=== PATIENT | female | born 1960 | race Caucasian/White ===

== ENCOUNTER 2024-01-12 14:26 | Emergency (ER) | payer BC, SELFPAY ==
[2024-01-12 14:37] VITALS: BP 117/78; PULSE 64; RESP 16; TEMP 36.8; O2SAT 95; BMI 20.8
--- NOTE | 2024-01-12 14:58 | CRLHL7_ITS ---
For Patients: As a result of the Century Cures Act, medical imaging exams and procedure reports are released immediately into your electronic medical record. You may view this report before your referring provider. If you have questions, please contact your health care provider. INDICATION: Headache. Trauma. TECHNIQUE: Non-contrast CT of the head is submitted. No comparisons. FINDINGS: The ventricles, sulci and gyri are of normal size, shape and contour. Midline structures are centrally located. No convincing evidence of intra- or extra-axial fluid collections. IMPRESSION: 1. No radiographic evidence of acute intracranial abnormalities. Please note that all CT scans at this facility use dose modulation, iterative reconstruction, and/or weight-based dosing when appropriate to reduce radiation dose to as low as reasonably achievable. Dictated by Chava Carlson MD @ 01/12/2024 3:25:49 PM (Electronically Signed)
--- NOTE | 2024-01-12 14:59 | ED.HEATRA ---
HPI - Head Injury General Date Seen: 01/12/24 Chief complaint: Head Injury/Pain Stated complaint: Hit head Time Seen by Provider: 01/12/24 14:40 Source: patient Mode of arrival: ambulatory Limitations: no limitations History of Present Illness HPI Narrative: Patient is a 63-year-old female presenting to emergency department for a head injury. She states yesterday about 530 she still up in hit the right posterior parietal portion of her skull on the corner of a steel cabinet. She states since that has happened she felt like there has been an on sensation behind his sinuses that has not been improving. She states she has some lightheadedness but this is a chronic issue and not different than her baseline. Same with her dizziness and nausea. Has not noticed any numbness or weakness. Denies vision changes, chest pain, shortness of breath. No other concerns noted. Is not having any neck pain Related Data Home Medications ?Medication ?Instructions ?Recorded ?Confirmed aspirin 325 mg capsule 325 mg PO Q4-6H PRN 01/12/24 01/12/24 sumatriptan succinate 100 mg tablet mg PO 01/12/24 Allergies Allergy/AdvReac Type Severity Reaction Status Date / Time tetracycline Allergy Verified 01/12/24 14:42 Review of Systems Status of ROS: Reports: 10 or more systems reviewed and unremarkable except as noted in History and below [facility] Social History Smoking Status: Former smoker How often do you have a drink containing alcohol: monthly or less AUDIT-C Alcohol total score: 1 Non-prescribed substance use: denies use Exam Narrative: Exam Narrative: Const: Well-nourished, Well-developed, in now distress Eyes: PERRL, no conjunctival injection, and symmetrical lids HENT: Atraumatic external nose and ears. Moist mucous membranes, no palpable skull fractures Neck: Symmetric, trachea midline, No thyromegaly. CVS: RRR, No murmurs or gallops. Peripheral pulses 2+ and equal in all extremities RESP: Unlabored respiratory effort. Clear to auscultation bilaterally. GI: Nontender/Nondistended, No rebound or guarding. MSK:Extremities w/o deformity, Normal Active ROM Skin: Warm, Dry. No rashes or lesions. Neuro: Normal Muscle tone, No focal neurological deficits. Psych: Awake, Alert, & Oriented x3. Appropriate mood and affect. Const: Vital Signs, click to edit/add: Vital Signs - 24 hr 01/12/24 14:37 Temperature 98.3 F Pulse Rate [Left P ulse Oximeter] 64 Respiratory Rate 16 Blood Pressure [Ri ght Upper Arm] 117/78 Pulse Oximetry 95 Oxygen Delivery Me thod Room Air Course Vital Signs Vital signs: Initial Vital Signs Temperature 98.3 F 01/12/24 14:37 Temperature Source Temporal Artery Scan 01/12/24 14:37 Pulse Rate 64 01/12/24 14:37 Respiratory Rate 16 01/12/24 14:37 Blood Pressure 117/78 01/12/24 14:37 Blood Pressure Mean 91 01/12/24 14:37 Blood Pressure Position Sitting 01/12/24 14:37 Pulse Oximetry 95 01/12/24 14:37 Oxygen Delivery Method Room Air 01/12/24 14:37 Vital Signs Temperature 98.3 F 01/12/24 14:37 Pulse Rate 64 01/12/24 14:37 Respiratory Rate 16 01/12/24 14:37 Blood Pressure 117/78 01/12/24 14:37 Pulse Oximetry 95 01/12/24 14:37 Oxygen Delivery Method Room Air 01/12/24 14:37 Temperature 98.3 F 01/12/24 14:37 Pulse Rate 64 01/12/24 14:37 Respiratory Rate 16 01/12/24 14:37 Blood Pressure 117/78 01/12/24 14:37 Pulse Oximetry 95 01/12/24 14:37 Oxygen Delivery Method Room Air 01/12/24 14:37 MDM - Head Injury MDM Narrative Medical decision making narrative: Patient is a 63-year-old female presenting to emergency department for concern of a head injury. Will do CT scan. Do not feel any palpable skull fractures. No clear signs of intracranial bleeding at this time. She describes the headache as just a odd sensation behind her sinuses and this does not seem consistent with a traumatic subarachnoid bleed. I believe CT scan is reasonable to do at this time and further lab work or imaging is not necessary. Is not having any neck pain. CT reviewed by myself the radiologist shows no concerning abnormalities patient is doing well we discharged at this time. She is agreeable to this plan. Imaging Data CT scan - head: Attestation: I have reviewed the pertinent imaging results. Radiologist's impression: 1. No radiographic evidence of acute intracranial abnormalities. Please note that all CT scans at this facility use dose modulation, iterative reconstruction, and/or weight-based dosing when appropriate to reduce radiation dose to as low as reasonably achievable. Dictated by Chava Carlson MD @ 01/12/2024 3:25:49 PM Discharge Plan Discharge Clinical Impression: Closed head injury Qualifiers: Encounter type: initial encounter Qualified Code(s): S09.90XA - Unspecified injury of head, initial encounter Patient Disposition: Home, Self-Care Condition: Stable Instructions: Head Injury (DC) Additional Instructions: There is no signs of intracranial abnormalities or skull fractures on the CT scan. Return to emergency department for new or worsening symptoms. Prescriptions: No Action sumatriptan succinate 100 mg tablet PO aspirin 325 mg capsule 325 mg PO Q4-6H PRN Follow Up/Referrals: Adrianna Mascorro MD [Staff Physician] - Stand Alone Forms: [employer] Info Instructions
[2024-01-12 16:08] VITALS: BP 136/84; PULSE 63; RESP 16
== END 2024-01-12 16:09 | disposition home or self-care (01) ==
PROVIDERS: Emergency Provider Student in an Organized Health Care Education/Training Program; PCP Family Medicine
DX: S09.90XA Unspecified injury of head, initial encounter (principal); W22.8XXA Striking against or struck by other objects, initial encounter
CPT/HCPCS: 70450; 99282; 99283

== ENCOUNTER 2024-07-13 06:10 | Inpatient (IN) | payer BC, SELFPAY ==
[2024-07-13] VITALS (10 sets, daily range): BP systolic 121–162; BP diastolic 75–102; PULSE 84–101; RESP 16–20; TEMP 36.4–37; O2SAT 95–99; BMI 21.7; BMI 20.6
--- NOTE | 2024-07-13 06:31 | ED.GENADULT ---
HPI - General Adult General Time Seen by Provider: 06:25 <Gretta Donaldson MD - Last Filed: 07/14/24 11:53> Date Seen: 07/13/24 <Gretta Donaldson MD - Last Filed: 07/14/24 11:53> Chief complaint: Nausea/Vomiting <Gretta Donaldson MD - Last Filed: 07/14/24 11:53> Stated complaint: Small Bowel Obstruction <Gretta Donaldson MD - Last Filed: 07/14/24 11:53> Time Seen by Provider: 07/13/24 06:30 <Gretta Donaldson MD - Last Filed: 07/14/24 11:53> Source: patient, RN notes reviewed and old records reviewed <Gretta Donaldson MD - Last Filed: 07/14/24 11:53> Mode of arrival: ambulatory <Gretta Donaldson MD - Last Filed: 07/14/24 11:53> Limitations: no limitations <Gretta Donaldson MD - Last Filed: 07/14/24 11:53> History of Present Illness HPI narrative: This 64-year-old female is coming in with nausea vomiting and abdominal pain. She started having discomfort late this evening, started throwing up around 1:00 a.m.. She has had multiple episodes of vomiting, did have to since arrival. She has had no fevers, no diarrhea. She had a normal bowel movement on Sunday morning. She has had a history of bowel obstruction before. She states we were close to taking her to surgery here, opted not to at the last minute, states she was given Ativan and markedly improved. She notes she shakes every time this has happened, reviewed with her that that can be a normal reaction. She was hospitalized once prior at [facility] for bowel obstruction managed non operatively in 2012. Her other bowel obstruction was reportedly in 2014. For surgery, she has had hysterectomy, tubal ligation, laparoscopic ovarian cystectomy. She is having generalized abdominal pain. <Gretta Donaldson MD - Last Filed: 07/14/24 11:53> Related Data Home medications: Home Medications ?Medication ?Instructions ?Recorded ?Confirmed aspirin 325 mg capsule 325 mg PO Q4-6H PRN 01/12/24 07/13/24 sumatriptan succinate 100 mg tablet 100 mg PO DIRECTED 01/12/24 07/13/24 <Gretta Donaldson MD - Last Filed: 07/14/24 11:53> Allergies/adverse reactions: Allergies Allergy/AdvReac Type Severity Reaction Status Date / Time tetracycline Allergy Verified 07/13/24 07:55 <Gretta Donaldson MD - Last Filed: 07/14/24 11:53> Review of Systems Status of ROS: Reports: 6 or more systems reviewed and unremarkable except as noted in History and below <Gretta Donaldson MD - Last Filed: 07/14/24 11:53> [facility] Medical History: Medical History (Updated 07/13/24 @ 13:35 by Yao Larkin MD) Constipation ?K59.00 - Constipation, unspecified (ICD-10) Hyperlipidemia ?E78.5 - Hyperlipidemia, unspecified (ICD-10) Irritable bowel syndrome ?K58.9 - Irritable bowel syndrome, unspecified (ICD-10) GERD (gastroesophageal reflux disease) ?K21.9 - Gastro-esophageal reflux disease without esophagitis (ICD-10) Migraines ?G43.909 - Migraine, unspecified, not intractable, without status migrainosus (ICD-10) Stage 2 chronic kidney disease ?N18.2 - Chronic kidney disease, stage 2 (mild) (ICD-10) <Gretta Donaldson MD - Last Filed: 07/14/24 11:53> Surgical History: Surgical History (Updated 07/13/24 @ 13:26 by Yao Larkin MD) H/O ovarian cystectomy ?Z98.890 - Other specified postprocedural states (ICD-10) ?Z87.42 - Personal history of other diseases of the female genital tract (ICD-10) History of tubal ligation ?Z98.51 - Tubal ligation status (ICD-10) History of hysterectomy ?Z90.710 - Acquired absence of both cervix and uterus (ICD-10) <Gretta Donaldson MD - Last Filed: 07/14/24 11:53> Family History: Family History (Updated 07/13/24 @ 13:27 by Yao Larkin MD) Mother Thyroid disease Grandmother No problems noted. Grandfather Colon cancer <Gretta Donaldson MD - Last Filed: 07/14/24 11:53> Social History: Social History (Updated 07/13/24 @ 13:29 by Yao Larkin MD) Narrative: She lives alone in [place]. She sees Dr. Henderson for primary care. Her mother is present with her today and is healthcare power of finance attorney. She works as a machinist mate. She does not smoke. She previously drank 1 beer a week but has not had anything to drink for a couple months. Code status is full What is your current living situation?: I presently have a place to live Problems where you live: no known problems Problems where you live details: n/a In the past 12 months, utilities in danger of being shut off: no In past 12 months, lack of transportation kept you from medical appts, meetings, work, or getting things needed for daily living: no In the past 12 mos, have been you worried that your food would run out before you had money to buy more?: never true In the past 12 mos, the food you bought just didn't last and you didn't have money to buy more?: never true Smoking Status: Never smoker Second hand tobacco smoke exposure: No How often do you have a drink containing alcohol: never How often do you have six or more drinks on one occasion: Never AUDIT-C Alcohol total score: 0 Non-prescribed substance use: denies use Caffeine: No How often does anyone, including family, friends and others, physically hurt you: never How often does anyone, including family, friends and others, insult or talk down to you: never How often does anyone, including family, friends and others, threaten you with harm: never How often does anyone, including family, friends and others, scream or curse at you: never <Gretta Donaldson MD - Last Filed: 07/14/24 11:53> Exam Const: Vital Signs, click to edit/add: Vital Signs - 24 hr 07/13/24 15:00 07/13/24 15:00 07/13/24 19:04 Temperature 97.6 F 98.6 F Pulse Rate [Pulse Oximeter] 86 86 84 Respiratory Rate 18 16 16 Blood Pressure [Ri ght Arm] 121/75 135/76 Pulse Oximetry 95 98 Oxygen Delivery Me thod Room Air Room Air 07/13/24 22:22 07/13/24 22:25 07/14/24 02:30 Temperature 98.4 F 98.9 F Pulse Rate [Pulse Oximeter] 94 94 95 Respiratory Rate 16 16 16 Blood Pressure [Ri ght Arm] 146/86 H 143/77 H Pulse Oximetry 98 98 Oxygen Delivery Me thod Room Air Room Air 07/14/24 07:00 07/14/24 07:00 Temperature 98.6 F Pulse Rate [Pulse Oximeter] 79 79 Respiratory Rate 16 16 Blood Pressure [Ri ght Arm] 121/76 Pulse Oximetry 97 Oxygen Delivery Me thod Room Air 64-year-old female is alert, interactive, no apparent distress does look uncomfortable. Pupils equal round reactive, sclera clear, symmetrical facial function. Lungs are clear, good air entry, no wheezing or crackles. CV regular rate and rhythm, no murmur, normal S1-S2. Abdomen is maybe slightly distended but patient's overall body habitus is slender. She has some mild generalized tenderness on palpation without any rebound or guarding, no organomegaly, no masses. On brief auscultation, do not hear bowel sounds. Patient was ambulatory into the ED of her own accord, no lower extremity edema. Skin visualized without rash or jaundice. <Gretta Donaldson MD - Last Filed: 07/14/24 11:53> Vital Signs, click to edit/add: Vital Signs - 24 hr 07/13/24 15:00 07/13/24 15:00 07/13/24 19:04 Temperature 97.6 F 98.6 F Pulse Rate [Pulse Oximeter] 86 86 84 Respiratory Rate 18 16 16 Blood Pressure [Ri ght Arm] 121/75 135/76 Pulse Oximetry 95 98 Oxygen Delivery Me thod Room Air Room Air 07/13/24 22:22 07/13/24 22:25 07/14/24 02:30 Temperature 98.4 F 98.9 F Pulse Rate [Pulse Oximeter] 94 94 95 Respiratory Rate 16 16 16 Blood Pressure [Ri ght Arm] 146/86 H 143/77 H Pulse Oximetry 98 98 Oxygen Delivery Me thod Room Air Room Air 07/14/24 07:00 07/14/24 07:00 Temperature 98.6 F Pulse Rate [Pulse Oximeter] 79 79 Respiratory Rate 16 16 Blood Pressure [Ri ght Arm] 121/76 Pulse Oximetry 97 Oxygen Delivery Me thod Room Air <Antonio Sharma MD - Last Filed: 07/13/24 08:46> Documenting provider has reviewed patient's vital signs: yes <Gretta Donaldson MD - Last Filed: 07/14/24 11:53> Course Course ED Course: IV will be established, will give patient a L of normal saline over 2 hours. She is declining anything for nausea or pain management at this time but assures me that she will keep this in mind and let us know if she does require either of these. I have stressed to her that she really should consider pain management. Will do a point of care creatinine so we can do CT imaging. We will get appropriate labs. Differential is gastroenteritis, bowel obstruction. CT imaging will certainly allude to any other possible intra-abdominal pathology. <Gretta Donaldson MD - Last Filed: 07/14/24 11:53> Reevaluation(s) Reevaluation #1: PATIENT NOTED TO HAVE A SMALL-BOWEL OBSTRUCTION ON CT OF THE ABDOMEN PELVIS. I DID VISIT WITH [facility] PATIENT WILL BE PLACED IN OBSERVATION FOR BOWEL REST AND POSSIBLE NG TUBE PLACEMENT. <Antonio Sharma MD - Last Filed: 07/13/24 08:46> Consultations Consultation #1: Have called and given our general surgeon an update on this patient. Awaiting Radiology over-read but on prelim visualization of the CT, definite appearance of bowel obstruction. We will be turning care over to oncoming ED partner. <Gretta Donaldson MD - Last Filed: 07/14/24 11:53> Time: 07:57 <Gretta Donaldson MD - Last Filed: 07/14/24 11:53> Vital Signs Vital signs: Initial Vital Signs Pulse Oximetry 99 07/13/24 06:20 Vital Signs Pulse Oximetry 99 07/13/24 06:20 Temperature 98.5 F 03/10/25 11:00 Pulse Rate 91 07/14/24 11:00 Respiratory Rate 18 07/14/24 11:00 Blood Pressure 108/67 07/14/24 11:00 Pulse Oximetry 98 07/14/24 11:00 Oxygen Delivery Method Room Air 07/14/24 11:00 <Gretta Donaldson MD - Last Filed: 07/14/24 11:53> Initial Vital Signs Pulse Oximetry 99 07/13/24 06:20 Vital Signs Pulse Oximetry 99 07/13/24 06:20 Temperature 98.5 F 07/14/24 11:00 Pulse Rate 91 07/14/24 11:00 Respiratory Rate 18 07/14/24 11:00 Blood Pressure 108/67 07/14/24 11:00 Pulse Oximetry 98 07/14/24 11:00 Oxygen Delivery Method Room Air 07/14/24 11:00 <Antonio Sharma MD - Last Filed: 07/13/24 08:46> Medications Administered Medications: Generic Name Dose Route Start Last Admin Trade Name Freq PRN Reason Stop Dose Admin Aspirin 325 mg 07/14/24 09:00 07/14/24 08:41 Aspirin Ec 325 Mg Tablet PO 325 mg DAILY CONNER Administration Lactated Ringer's 1,000 mls @ 125 mls/hr 07/13/24 09:45 07/14/24 10:11 Lactated Ringers 1000 Ml IV Not Given .Q8H CONNER Lorazepam 0.5 - 1 mg 07/13/24 09:41 07/13/24 22:16 Lorazepam 2 Mg/Ml Inj IVP 0.5 mg Q4H PRN Administration Ondansetron HCl 4 mg 07/13/24 09:37 07/13/24 22:09 Ondansetron 2 Mg/Ml Inj IVP 4 mg Q4H PRN Administration Nausea Sodium Chloride 5 ml 07/13/24 08:43 07/13/24 22:17 Sodium Chloride 0.9 % (Flush) 10 Ml Syringe IVF 5 ml .FLUSH PRN Administration Sodium Chloride 5 ml 07/13/24 09:00 07/13/24 22:09 Sodium Chloride 0.9 % (Flush) 10 Ml Syringe IVF 5 ml BID CONNER Administration Discontinued Medications Generic Name Dose Route Start Last Admin Trade Name Freq PRN Reason Stop Dose Admin Sodium Chloride 1,000 mls @ 500 mls/hr 07/13/24 06:32 07/13/24 07:45 0.9 % Sodium Chloride 1000 Ml IV 07/13/24 08:31 0 mls/hr .Q2H CONNER Infusion <Gretta Donaldson MD - Last Filed: 07/14/24 11:53> Generic Name Dose Route Start Last Admin Trade Name Matthew PRN Reason Stop Dose Admin Aspirin 325 mg 07/14/24 09:00 07/14/24 08:41 Aspirin Ec 325 Mg Tablet PO 325 mg DAILY CONNER Administration Lactated Ringer's 1,000 mls @ 125 mls/hr 07/13/24 09:45 07/14/24 10:11 Lactated Ringers 1000 Ml IV Not Given .Q8H CONNER Lorazepam 0.5 - 1 mg 07/13/24 09:41 07/13/24 22:16 Lorazepam 2 Mg/Ml Inj IVP 0.5 mg Q4H PRN Administration Ondansetron HCl 4 mg 07/13/24 09:37 07/13/24 22:09 Ondansetron 2 Mg/Ml Inj IVP 4 mg Q4H PRN Administration Nausea Sodium Chloride 5 ml 07/13/24 08:43 07/13/24 22:17 Sodium Chloride 0.9 % (Flush) 10 Ml Syringe IVF 5 ml .FLUSH PRN Administration Sodium Chloride 5 ml 07/13/24 09:00 07/13/24 22:09 Sodium Chloride 0.9 % (Flush) 10 Ml Syringe IVF 5 ml BID CONNER Administration Discontinued Medications Generic Name Dose Route Start Last Admin Trade Name Matthew PRN Reason Stop Dose Admin Sodium Chloride 1,000 mls @ 500 mls/hr 07/13/24 06:32 07/13/24 07:45 0.9 % Sodium Chloride 1000 Ml IV 07/13/24 08:31 0 mls/hr .Q2H CONNER Infusion <Antonio Sharma MD - Last Filed: 07/13/24 08:46> Medical Decision Making Lab Data Lab results reviewed: Yes I reviewed the patient's lab results <Gretta Donaldson MD - Last Filed: 07/14/24 11:53> Labs: Lab Results 07/13/24 07/14/24 Range/Units 06:20 06:10 WBC 12.75 H 9.75 (4.50-11.00) K/uL RBC 5.03 4.28 (4.00-5.20) m/uL Hgb 14.7 12.2 (12.0-16.0) gm/dL Hct 44.3 38.1 (33.0-51.0) % MCV 88 89 (80-100) fL MCH 29 29 (26-34) pg MCHC 33 32 (32-36) gm/dL RDW Coeff of Jose R 14.2 14.7 (11.5-15.5) % Plt Count 380 314 (140-440) K/uL Neut % (Auto) 65.5 79.2 H (42.0-72.0) % Lymph % (Auto) 27.5 14.9 L (20-44) % [place] % (Auto) 5.2 5.5 (0.0-11.0) % Eos % (Auto) 1.3 0.1 (0.0-7.0) % Baso % (Auto) 0.3 0.2 (0.0-3.0) % Neut # (Auto) 8.40 H 7.70 H (1.7-7.0) K/uL Lymph # (Auto) 3.50 H 1.50 (0.90-2.90) K/uL [place] # (Auto) 0.70 0.50 (0.00-0.90) K/UL Eos # (Auto) 0.20 0.01 (0.00-0.50) K/uL Baso # (Auto) 0.00 0.02 (0.00-0.30) K/uL Abs Immat Gran (auto) 0.00 0.01 (0.00-0.30) K/uL Imm/Tot Granulo (auto) 0.2 0.1 % Sodium 139 138 (135-149) mmol/L Potassium 4.1 4.2 (3.6-5.1) mmol/L Chloride 104 106 (96-114) mmol/L Carbon Dioxide 25 29 (20-32) mmol/L Anion Gap 10 3 L (7-15) mEq/L BUN 15 14 (7-30) mg/dL Creatinine 1.1 0.9 (0.5-1.5) mg/dL Estimated Creat Clear 40.01 44.02 Estimated GFR 57 72 ml/min Glucose 124 H 110 (60-115) mg/dL Lactate 2.0 H 0.6 (0.5-1.9) mmol/L Calcium 10.0 8.9 (8.4-10.6) mg/dL Total Bilirubin 0.7 (0.1-1.5) mg/dL AST 28 (12-35) U/L ALT 23 (4-35) U/L Alkaline Phosphatase 59 (40-150) U/L C-Reactive Protein < 0.5 L (0.5-1.0) mg/dL Total Protein 7.5 (6.0-8.3) g/dL Albumin 4.7 (3.3-5.0) g/dL POC Creatinine 1.2 (0.6-1.3) mg/dl <Gretta Donaldson MD - Last Filed: 07/14/24 11:53> Lab Results 07/13/24 07/14/24 Range/Units 06:20 06:10 WBC 12.75 H 9.75 (4.50-11.00) K/uL RBC 5.03 4.28 (4.00-5.20) m/uL Hgb 14.7 12.2 (12.0-16.0) gm/dL Hct 44.3 38.1 (33.0-51.0) % MCV 88 89 (80-100) fL MCH 29 29 (26-34) pg MCHC 33 32 (32-36) gm/dL RDW Coeff of Jose R 14.2 14.7 (11.5-15.5) % Plt Count 380 314 (140-440) K/uL Neut % (Auto) 65.5 79.2 H (42.0-72.0) % Lymph % (Auto) 27.5 14.9 L (20-44) % [place] % (Auto) 5.2 5.5 (0.0-11.0) % Eos % (Auto) 1.3 0.1 (0.0-7.0) % Baso % (Auto) 0.3 0.2 (0.0-3.0) % Neut # (Auto) 8.40 H 7.70 H (1.7-7.0) K/uL Lymph # (Auto) 3.50 H 1.50 (0.90-2.90) K/uL [place] # (Auto) 0.70 0.50 (0.00-0.90) K/UL Eos # (Auto) 0.20 0.01 (0.00-0.50) K/uL Baso # (Auto) 0.00 0.02 (0.00-0.30) K/uL Abs Immat Gran (auto) 0.00 0.01 (0.00-0.30) K/uL Imm/Tot Granulo (auto) 0.2 0.1 % Sodium 139 138 (135-149) mmol/L Potassium 4.1 4.2 (3.6-5.1) mmol/L Chloride 104 106 (96-114) mmol/L Carbon Dioxide 25 29 (20-32) mmol/L Anion Gap 10 3 L (7-15) mEq/L BUN 15 14 (7-30) mg/dL Creatinine 1.1 0.9 (0.5-1.5) mg/dL Estimated Creat Clear 40.01 44.02 Estimated GFR 57 72 ml/min Glucose 124 H 110 (60-115) mg/dL Lactate 2.0 H 0.6 (0.5-1.9) mmol/L Calcium 10.0 8.9 (8.4-10.6) mg/dL Total Bilirubin 0.7 (0.1-1.5) mg/dL AST 28 (12-35) U/L ALT 23 (4-35) U/L Alkaline Phosphatase 59 (40-150) U/L C-Reactive Protein < 0.5 L (0.5-1.0) mg/dL Total Protein 7.5 (6.0-8.3) g/dL Albumin 4.7 (3.3-5.0) g/dL POC Creatinine 1.2 (0.6-1.3) mg/dl <Antonio Sharma MD - Last Filed: 07/13/24 08:46> Discharge Plan Discharge Clinical Impression: Complete obstruction of small intestine <Gretta Donaldson MD - Last Filed: 07/14/24 11:53> Patient Disposition: Admitted As Observation <Gretta Donaldson MD - Last Filed: 07/14/24 11:53> Condition: Stable <Gretta Donaldson MD - Last Filed: 07/14/24 11:53> Activity Level: Other <Gretta Donaldson MD - Last Filed: 07/14/24 11:53> Other <Antonio Sharma MD - Last Filed: 07/13/24 08:46> Discharge Diet: Other <Gretta Donaldson MD - Last Filed: 07/14/24 11:53> Other <Antonio Sharma MD - Last Filed: 07/13/24 08:46>
[2024-07-13 06:36] LABS: Creatinine, Point-of-Care* 1.2 mg/dl (0.6-1.3)
[2024-07-13] MEDS: 0.9 % SODIUM CHLORIDE 1000 ml 1,000 ML 500 ML IV (06:39)
[2024-07-13 06:45] LABS: Basophils Percent Auto 0.3 % (0.0-3.0); Eosinophils Percent Auto 1.3 % (0.0-7.0); Hematocrit 44.3 % (33.0-51.0); Hemoglobin* 14.7 gm/dL (12.0-16.0); Immature Granulocytes Pct Auto 0.2 %; Lymphocytes Percent Auto 27.5 % (20-44); Mean Corpuscular HGB Conc 33 gm/dL (32-36); Mean Corpuscular Hemoglobin 29 pg (26-34); Mean Corpuscular Volume 88 fL (80-100); Monocytes Percent Auto 5.2 % (0.0-11.0); Neutrophils Percent Auto 65.5 % (42.0-72.0); Platelet Count* 380 K/uL (140-440); RDW Coefficient of Variation % 14.2 % (11.5-15.5); Red Blood Count 5.03 m/uL (4.00-5.20); White Blood Count* 12.75 K/uL (4.50-11.00)
[2024-07-13 06:51] LABS: Slide Review Reflex No
[2024-07-13 07:02] LABS: Albumin* 4.7 g/dL (3.3-5.0); Chloride* 104 mmol/L (96-114); Potassium* 4.1 mmol/L (3.6-5.1); Sodium* 139 mmol/L (135-149)
[2024-07-13 07:05] LABS: Alanine Aminotransferase* 23 U/L (4-35); Alkaline Phosphatase* 59 U/L (40-150); Anion Gap 10 mEq/L (7-15); Aspartate Amino Transferase* 28 U/L (12-35); Bilirubin Total* 0.7 mg/dL (0.1-1.5); Blood Urea Nitrogen* 15 mg/dL (7-30); Carbon Dioxide* 25 mmol/L (20-32); Creatinine* 1.1 mg/dL (0.5-1.5); Est. Creatinine Clearance* 40.01; Estimated Glomerular Filt Rate 57 ml/min; Glucose* 124 mg/dL (60-115); Total Protein* 7.5 g/dL (6.0-8.3)
[2024-07-13 07:10] LABS: C Reactive Protein* < 0.5 mg/dL (0.5-1.0)
--- NOTE | 2024-07-13 09:14 | PM.GSCN ---
History of Present Illness Consult details Date Seen: 07/13/24 Consult date: 07/13/24 Narrative: Patient presents for abdominal pain. She has had bowel obstructions in the past, several years ago, that was managed conservatively. She does state that the pain feels similar. She points to the middle for abdomen as where she feels the most discomfort. She also feels distended. While in the emergency department she has persistently felt nauseous and vomited several times. She does feel better after she vomits. Her last bowel movement was yesterday morning. She did pass gas a few hours earlier. Denies any fevers. Abdominal surgical history is positive for ovarian cystectomy, hysterectomy and tubal ligation. Review of Systems Status of ROS: Reports: 10 or more systems reviewed and unremarkable except as noted in History and below [facility] Social History Smoking Status: Former smoker Second hand tobacco smoke exposure: No How often do you have a drink containing alcohol: monthly or less AUDIT-C Alcohol total score: 1 Non-prescribed substance use: denies use Meds Home Medications and Allergies Home Medications ?Medication ?Instructions ?Recorded ?Confirmed ?Type aspirin 325 mg capsule 325 mg PO Q4-6H PRN 01/12/24 07/13/24 History sumatriptan succinate 100 mg tablet 100 mg PO DIRECTED 01/12/24 07/13/24 History Allergies Allergy/AdvReac Type Severity Reaction Status Date / Time tetracycline Allergy Verified 07/13/24 07:55 Exam Narrative: Exam Narrative: General: Alert and oriented, mild distress. Nontoxic Respiratory: Equal breath rise bilaterally, maintained on room air CV: Well perfused Abdomen: Soft, moderate distention, some tenderness to palpation with no guarding or rebound. Tympanic. Lower Pfannenstiel incision well healed. Const: Vital Signs, click to edit/add: Vital Signs - 24 hr 07/13/24 06:20 07/13/24 06:31 07/13/24 07:25 Temperature 98.0 F Pulse Rate 95 Pulse Rate [Right Pulse Oximeter] 94 Respiratory Rate 18 Blood Pressure Blood Pressure [Le ft Upper Arm] 162/93 H Pulse Oximetry 99 99 97 Oxygen Delivery Me thod Room Air 07/13/24 07:26 07/13/24 08:43 Temperature 97.6 F Pulse Rate 98 Pulse Rate [Right Pulse Oximeter] Respiratory Rate 16 Blood Pressure 147/75 H 146/102 H Blood Pressure [Le ft Upper Arm] Pulse Oximetry 98 Oxygen Delivery Me thod Results Labs Labs: Abnormal lab results 07/13/24 Range/Units 06:20 WBC 12.75 H (4.50-11.00) K/uL Neut # (Auto) 8.40 H (1.7-7.0) K/uL Lymph # (Auto) 3.50 H (0.90-2.90) K/uL Glucose 124 H (60-115) mg/dL Lactate 2.0 H (0.5-1.9) mmol/L C-Reactive Protein < 0.5 L (0.5-1.0) mg/dL Diabetes panel 07/13/24 Range/Units 06:20 Sodium 139 (135-149) mmol/L Potassium 4.1 (3.6-5.1) mmol/L Chloride 104 (96-114) mmol/L Carbon Dioxide 25 (20-32) mmol/L BUN 15 (7-30) mg/dL Creatinine 1.1 (0.5-1.5) mg/dL Glucose 124 H (60-115) mg/dL Calcium 10.0 (8.4-10.6) mg/dL AST 28 (12-35) U/L ALT 23 (4-35) U/L Alkaline Phosphatase 59 (40-150) U/L Total Protein 7.5 (6.0-8.3) g/dL Albumin 4.7 (3.3-5.0) g/dL Calcium panel 07/13/24 Range/Units 06:20 Calcium 10.0 (8.4-10.6) mg/dL Albumin 4.7 (3.3-5.0) g/dL Pituitary panel 07/13/24 Range/Units 06:20 Sodium 139 (135-149) mmol/L Potassium 4.1 (3.6-5.1) mmol/L Chloride 104 (96-114) mmol/L Carbon Dioxide 25 (20-32) mmol/L BUN 15 (7-30) mg/dL Creatinine 1.1 (0.5-1.5) mg/dL Glucose 124 H (60-115) mg/dL Calcium 10.0 (8.4-10.6) mg/dL Adrenal panel 07/13/24 Range/Units 06:20 Sodium 139 (135-149) mmol/L Potassium 4.1 (3.6-5.1) mmol/L Chloride 104 (96-114) mmol/L Carbon Dioxide 25 (20-32) mmol/L BUN 15 (7-30) mg/dL Creatinine 1.1 (0.5-1.5) mg/dL Glucose 124 H (60-115) mg/dL Calcium 10.0 (8.4-10.6) mg/dL Total Bilirubin 0.7 (0.1-1.5) mg/dL AST 28 (12-35) U/L ALT 23 (4-35) U/L Alkaline Phosphatase 59 (40-150) U/L Total Protein 7.5 (6.0-8.3) g/dL Albumin 4.7 (3.3-5.0) g/dL All other labs normal. Imaging Abdomen CT scan report/results: report reviewed and image reviewed Progress Note:A&P Assessment and plan (1) Small bowel obstruction: Status: Acute Assessment and Plan: Patient is a 64 yo female who presents with less than 12 hours worsening abdominal pain. Vital signs stable. On labs she does have a mild leukocytosis (12) and elevated lactate (2). CT scan was obtained which shows dilated small bowel and transition point in the right lower quadrant consistent with a bowel obstruction. Patient does have a history of abdominal surgeries, etiology secondary to adhesions. Recommend conservative management at this time. Patient is complaining of persistent nausea and vomiting in the emergency department, but refusing NG tube. -NPO, IV fluid -sparing use of IV pain medicines -patient would benefit from an NG tube, recommend placement if she is agreeable -encourage ambulation -SCDs for DVT prophylaxis Hospitalist has been consulted, appreciate their assistance in managing this patient.
[2024-07-13] MEDS: LORazepam 2 MG/ML inj IVP ×3 (10:00→22:16)
[2024-07-13] MEDS: SODIUM CHLORIDE 0.9 % (FLUSH) 10 ML SYRINGE 5 ML IVF ×3 (10:03→22:17)
[2024-07-13] MEDS: LACTATED RINGERS 1000 ML 1,000 ML 125 ML IV (11:35)
--- NOTE | 2024-07-13 12:57 | PC.NURSE ---
Admission - Pt arrived from ED at approximately 0920 accompanied by mother. Pt alert, oriented, able to follow direction. Pt reported abdominal pain and nausea. Noted to have 2 episodes of emesis, vomitus appeared to be greenish/clear with small amount of dark particulate. Pt reluctant to receive pain medication and fluids, RN provided education and answered pt questions. Pt agreed to medication for pain, given per MAR with pt behavior indicating relief and pt verbalizing improvement. Pt observed to sleep. No further episodes of emesis noted at this time.
--- NOTE | 2024-07-13 13:19 | PM.IMHP1 ---
Hospitalist- H&P: HPI History of Present Illness Date Seen: 07/13/24 Chief complaint: Small Bowel Obstruction Narrative: Isaias Gonzales is a 64 year old female admitted through the emergency department with nausea vomiting and abdominal pain starting approximately 11:00 p.m. last night.. Pain started around 11:00 p.m. and vomiting started around 1:00 a.m.. She has had multiple episodes of vomiting, did have to since arrival. She has had no fevers, no diarrhea. She had a normal bowel movement on Sunday morning. She has had a history of bowel obstruction before. In 2014 she was hospitalized here with a small-bowel obstruction. She was taken to the OR for urgent surgery and on arrival to the OR decision was made to cancel surgery and treat conservatively. She recovered uneventfully from that episode. She reports she has had other episodes of small-bowel obstruction in the past all manage conservatively. She reports she has symptoms at home suggestive of bowel obstructions that are relatively mild and self-limited and she does not seek medical attention for these. In the emergency department she had a abdominal CT which showed findings consistent with a small bowel obstruction with a transition point in the right lower quadrant. In the emergency department she declined pain medication, IV fluids and NG tube. Review of Systems Narrative: She reports she was feeling well prior to the onset of symptoms last night. No recent illness or injury. [facility] Medical History (Updated 07/13/24 @ 13:35 by Yao Larkin MD) Constipation ?K59.00 - Constipation, unspecified (ICD-10) Hyperlipidemia ?E78.5 - Hyperlipidemia, unspecified (ICD-10) Irritable bowel syndrome ?K58.9 - Irritable bowel syndrome, unspecified (ICD-10) GERD (gastroesophageal reflux disease) ?K21.9 - Gastro-esophageal reflux disease without esophagitis (ICD-10) Migraines ?G43.909 - Migraine, unspecified, not intractable, without status migrainosus (ICD-10) Stage 2 chronic kidney disease ?N18.2 - Chronic kidney disease, stage 2 (mild) (ICD-10) Surgical History (Updated 07/13/24 @ 13:26 by Yao Larkin MD) H/O ovarian cystectomy ?Z98.890 - Other specified postprocedural states (ICD-10) ?Z87.42 - Personal history of other diseases of the female genital tract (ICD-10) History of tubal ligation ?Z98.51 - Tubal ligation status (ICD-10) History of hysterectomy ?Z90.710 - Acquired absence of both cervix and uterus (ICD-10) Family History (Updated 07/13/24 @ 13:27 by Yao Larkin MD) Mother Thyroid disease Grandmother No problems noted. Grandfather Colon cancer Social History (Updated 07/13/24 @ 13:29 by Yao Larkin MD) Narrative: She lives alone in [place]. She sees Dr. Henderson for primary care. Her mother is present with her today and is healthcare power of traffic law attorney. She works as a production machinist. She does not smoke. She previously drank 1 beer a week but has not had anything to drink for a couple months. Code status is full What is your current living situation?: I presently have a place to live Problems where you live: no known problems Problems where you live details: n/a In the past 12 months, utilities in danger of being shut off: no In past 12 months, lack of transportation kept you from medical appts, meetings, work, or getting things needed for daily living: no In the past 12 mos, have been you worried that your food would run out before you had money to buy more?: never true In the past 12 mos, the food you bought just didn't last and you didn't have money to buy more?: never true Smoking Status: Never smoker Second hand tobacco smoke exposure: No How often do you have a drink containing alcohol: never How often do you have six or more drinks on one occasion: Never AUDIT-C Alcohol total score: 0 Non-prescribed substance use: denies use Caffeine: No How often does anyone, including family, friends and others, physically hurt you: never How often does anyone, including family, friends and others, insult or talk down to you: never How often does anyone, including family, friends and others, threaten you with harm: never How often does anyone, including family, friends and others, scream or curse at you: never Meds Home Medications and Allergies Home Medications ?Medication ?Instructions ?Recorded ?Confirmed ?Type aspirin 325 mg capsule 325 mg PO Q4-6H PRN 01/12/24 07/13/24 History sumatriptan succinate 100 mg tablet 100 mg PO DIRECTED 01/12/24 07/13/24 History Allergies Allergy/AdvReac Type Severity Reaction Status Date / Time tetracycline Allergy Verified 07/13/24 07:55 Exam Narrative: Exam Narrative: She is alert and appears in no distress. Oropharynx with dry mucous membranes. Neck is supple without mass or adenopathy. Respirations are clear to auscultation. Breathing is unlabored. Cardiovascular: S1, S2, regular rate and rhythm. No murmur gallop or rub. Abdomen: Bowel sounds active. Abdomen is soft with mild diffuse tenderness and moderate tenderness in the right lower quadrant. No mass. No peritonitis. External genitalia normal. Extremities without edema. Good capillary refill and good pulses. No rash Const: Vital Signs, click to edit/add: Vital Signs - 24 hr 07/13/24 06:20 07/13/24 06:31 07/13/24 07:25 Temperature 98.0 F Pulse Rate 95 Pulse Rate [Pulse Oximeter] Pulse Rate [Right Pulse Oximeter] 94 Respiratory Rate 18 Blood Pressure Blood Pressure [Le ft Upper Arm] 162/93 H Blood Pressure [Ri ght Arm] Pulse Oximetry 99 99 97 Oxygen Delivery Me thod Room Air 07/13/24 07:26 07/13/24 08:43 07/13/24 10:36 Temperature 97.6 F 97.5 F L Pulse Rate 98 Pulse Rate [Pulse Oximeter] 101 H Pulse Rate [Right Pulse Oximeter] Respiratory Rate 16 20 Blood Pressure 147/75 H 146/102 H Blood Pressure [Le ft Upper Arm] Blood Pressure [Ri ght Arm] 147/78 H Pulse Oximetry 98 99 Oxygen Delivery Me thod Room Air Documenting provider has reviewed patient's vital signs: yes Hospitalist - H&P: Result Labs Labs: Short CBC 07/13/24 Range/Units 06:20 WBC 12.75 H (4.50-11.00) K/uL Hgb 14.7 (12.0-16.0) gm/dL Hct 44.3 (33.0-51.0) % Plt Count 380 (140-440) K/uL BMP 07/13/24 06:20 Sodium 139 Potassium 4.1 Chloride 104 Carbon Dioxide 25 BUN 15 Creatinine 1.1 Glucose 124 H Calcium 10.0 Liver Function 07/13/24 Range/Units 06:20 Total Bilirubin 0.7 (0.1-1.5) mg/dL AST 28 (12-35) U/L ALT 23 (4-35) U/L Alkaline Phosphatase 59 (40-150) U/L Albumin 4.7 (3.3-5.0) g/dL Imaging CT scan - abdomen: Radiologist's impression: INDICATION: History of small-bowel obstruction, epigastric pain. COMPARISON: 10/24/2019, 03/26/2015 TECHNIQUE: CT of the abdomen and pelvis with intravenous contrast. Multiplanar axial, coronal, and sagittal reformats were reconstructed. Contrast: 75 mL Isovue 370. FINDINGS: Lung bases: Normal. Liver: Normal. No mass. Gallbladder and bile ducts: Normal gallbladder. No bile duct dilation. Pancreas: Normal. Spleen: Normal. Adrenal glands: Normal. Kidneys: Normal parenchyma. No cyst or solid mass. No calculi. No urinary tract dilation. Urinary bladder: Normal. Pelvis: No cyst or mass. Vessels: Few atherosclerotic vascular calcifications. Widely patent mesenteric vessels. Bowel: The stomach is decompressed. The proximal small bowel is decompressed. There is relatively abrupt transition to dilated small bowel at the level of the proximal ileum. There is some fecalization of the contents just proximal to the 1st obstruction point. The transition point is seen on series 2, image 90 3-97. The proximal and distal transition points are immediately adjacent to one another in the right lower quadrant. The interval small bowel is dilated and measures up to 3 centimeters in diameter. There are air-fluid levels. The wall is normal thickness and slightly hyperenhancing. There is a small amount of mesenteric edema but no interloop ascites. No abscess or phlegmon. Transition point is at the distal ileum. The terminal ileum is decompressed. Normal CT appearance of the colon. Probable appendectomy with a surgical clip at the cecal tip. Mild stool burden. Lymph nodes: No adenopathy. Peritoneum: Small ascites. No free air. Abdominal wall: No hernia. Bones: No fractures. No focal worrisome bone lesions. IMPRESSION: 1. Small-bowel obstruction with a single transition point in the right lower quadrant. No ischemia or perforation. 2. Minimal abdominal ascites. No abscess. No free air. Assessment and Plan Assessment and plan (1) Small bowel obstruction: Problem comment: 64-year-old female with recurrent small-bowel obstruction likely related to adhesions from prior surgeries. Conservative management will be the initial strategy. So far patient has been reluctant to receive IV fluids, pain medication, antiemetics, NG tube. She did agree to lorazepam which she thought was helpful when she had a previous bowel obstruction. May also allow for IV fluids. Continue to communicate and coordinate plan of care based on her clinical course Status: Acute Total Time Spent Total Time Spent: Total time spent today is 65 minutes in coordination of care, review of past medical records and outside medical records and discussion with patient, her mother, surgery and other providers ongoing management strategy
[2024-07-13] MEDS: ONDANSETRON 2 MG/ML inj 4 MG IVP (22:09)
[2024-07-14] MEDS: LACTATED RINGERS 1000 ML 1,000 ML 125 ML IV (02:28)
[2024-07-14 02:30] VITALS: BP 143/77; PULSE 95; RESP 16; TEMP 37.2; O2SAT 98
[2024-07-14 06:18] LABS: Lactate* 0.6 mmol/L (0.5-1.9)
[2024-07-14 06:31] LABS: Basophils Absolute Auto 0.02 K/uL (0.00-0.30); Basophils Percent Auto 0.2 % (0.0-3.0); Eosinophils Absolute Auto 0.01 K/uL (0.00-0.50); Eosinophils Percent Auto 0.1 % (0.0-7.0); Hematocrit 38.1 % (33.0-51.0); Hemoglobin* 12.2 gm/dL (12.0-16.0); Immature Granulocytes Abs Auto 0.01 K/uL (0.00-0.30); Immature Granulocytes Pct Auto 0.1 %; Lymphocytes Percent Auto 14.9 % (20-44); Mean Corpuscular HGB Conc 32 gm/dL (32-36); Mean Corpuscular Hemoglobin 29 pg (26-34); Mean Corpuscular Volume 89 fL (80-100); Monocytes Percent Auto 5.5 % (0.0-11.0); Neutrophils Percent Auto 79.2 % (42.0-72.0); Platelet Count* 314 K/uL (140-440); RDW Coefficient of Variation % 14.7 % (11.5-15.5); Red Blood Count 4.28 m/uL (4.00-5.20); White Blood Count* 9.75 K/uL (4.50-11.00)
[2024-07-14 06:34] LABS: Slide Review Reflex No
[2024-07-14 06:37] LABS: Chloride* 106 mmol/L (96-114); Sodium* 138 mmol/L (135-149)
[2024-07-14 06:53] LABS: Potassium* 4.2 mmol/L (3.6-5.1)
[2024-07-14 06:55] LABS: Blood Urea Nitrogen* 14 mg/dL (7-30); Creatinine* 0.9 mg/dL (0.5-1.5); Est. Creatinine Clearance* 44.02; Estimated Glomerular Filt Rate 72 ml/min
[2024-07-14 06:56] LABS: Anion Gap 3 mEq/L (7-15); Calcium* 8.9 mg/dL (8.4-10.6); Carbon Dioxide* 29 mmol/L (20-32); Glucose* 110 mg/dL (60-115)
[2024-07-14 07:00] VITALS: BP 121/76; PULSE 79; RESP 16; TEMP 37; O2SAT 97
--- NOTE | 2024-07-14 07:45 | PM.GSPN ---
Subjective Subjective Date Seen: 07/14/24 Interval history: Patient is feeling better this morning. She did pass some gas. The cramping, sharp pain she experienced yesterday has resolved. She still has some mild distention, but not compared to when she came in yesterday. She has been walking the halls without difficulty. She got Ativan x2, which helped with her abdominal discomfort yesterday. She had persistent nausea and emesis, received Zofran yesterday evening. Since getting the Zofran she denies any nausea and has not thrown. Exam Narrative: Exam Narrative: General: Alert and oriented, no acute distress Abdomen: Mild distention, tympanic, soft and nontender. No guarding or rebound. Const: Vital Signs, click to edit/add: Vital Signs - 24 hr 07/13/24 08:43 07/13/24 10:36 07/13/24 10:36 Temperature 97.5 F L Pulse Rate 98 Pulse Rate [Pulse Oximeter] 101 H Respiratory Rate 16 20 20 Blood Pressure 146/102 H Blood Pressure [Ri ght Arm] 147/78 H Pulse Oximetry 98 99 99 Oxygen Delivery Me thod Room Air Room Air 07/13/24 15:00 07/13/24 15:00 07/13/24 19:04 Temperature 97.6 F 98.6 F Pulse Rate Pulse Rate [Pulse Oximeter] 86 86 84 Respiratory Rate 18 16 16 Blood Pressure Blood Pressure [Ri ght Arm] 121/75 135/76 Pulse Oximetry 95 98 Oxygen Delivery Me thod Room Air Room Air 07/13/24 22:22 07/13/24 22:25 07/14/24 02:30 Temperature 98.4 F 98.9 F Pulse Rate Pulse Rate [Pulse Oximeter] 94 94 95 Respiratory Rate 16 16 16 Blood Pressure Blood Pressure [Ri ght Arm] 146/86 H 143/77 H Pulse Oximetry 98 98 Oxygen Delivery Me thod Room Air Room Air Labs/Imaging Labs Labs: No leukocytosis Progress Note:A&P Assessment and plan (1) Small bowel obstruction: Status: Acute Assessment and Plan: Patient is a 64 yo female who presents with a small-bowel obstruction. Her exam is improved compared to yesterday. Vital signs stable. She did pass gas this morning. No bowel movement. -NPO, IV fluid. Hold off on diet at this time. Will re-evaluate this afternoon. -sparing use of IV pain medicines -encourage ambulation -SCDs for DVT prophylaxis
[2024-07-14] MEDS: ASPIRIN EC 325 MG TABLET PO (08:41)
[2024-07-14 11:00] VITALS: BP 108/67; PULSE 91; RESP 18; TEMP 36.9; O2SAT 98
[2024-07-14 15:00] VITALS: BP 131/81; PULSE 79; RESP 16; O2SAT 98
--- NOTE | 2024-07-14 15:33 | PM.IMPN1 ---
Progress Note: A&P Assessment and plan (1) Small bowel obstruction: Problem details: 64-year-old female with recurrent small-bowel obstruction likely related to adhesions from prior surgeries. So far doing well with conservative management. She is passing gas indicating likely that things are opening up. Will cautiously introduce clear liquids today to see if she can tolerate this. Status: Acute Plan Continue in hospital for IV fluids, symptom management and monitoring of bowel function. Possible discharge to home in the next day if she continues to show signs of opening up and tolerating p.o. intake. Plan of care discussed with the patient she is in agreement with this. Total time spent today is 35 minutes in discussing with patient and other providers ongoing plan of care Subjective Date Seen: 07/14/24 Interval history: Isaias Gonzales is a 64 year old female admitted through the emergency department with nausea vomiting and abdominal pain starting approximately 11:00 p.m. last night.. Pain started around 11:00 p.m. and vomiting started around 1:00 a.m.. She has had multiple episodes of vomiting, did have to since arrival. She has had no fevers, no diarrhea. She had a normal bowel movement on Sunday morning. She has had a history of bowel obstruction before. In 2014 she was hospitalized here with a small-bowel obstruction. She was taken to the OR for urgent surgery and on arrival to the OR decision was made to cancel surgery and treat conservatively. She recovered uneventfully from that episode. She reports she has had other episodes of small-bowel obstruction in the past all manage conservatively. She reports she has symptoms at home suggestive of bowel obstructions that are relatively mild and self-limited and she does not seek medical attention for these. In the emergency department she had a abdominal CT which showed findings consistent with a small bowel obstruction with a transition point in the right lower quadrant. In the emergency department she declined pain medication, IV fluids and NG tube. Yesterday afternoon she did allow for IV fluids. She did also have 1 dose of Zofran and has continued to get occasional doses of lorazepam which she reports helps her feel better. No fever. No vomiting today. This morning she has been recurrent Amanda passing gas per rectum. No solid or liquid stool yet. Pain is much improved. Exam Narrative: Exam Narrative: She is alert and appears in no distress. Breathing is unlabored. Cardiovascular: S1, S2, regular rate and rhythm. Abdomen: Bowel sounds are present. High-pitched sounds yesterday of resolved. Abdomen is soft with mild right lower quadrant tenderness. Otherwise no tenderness and no peritonitis. No extremity edema. Const: Vital Signs, click to edit/add: Vital Signs - 24 hr 07/13/24 19:04 07/13/24 22:22 07/13/24 22:25 Temperature 98.6 F 98.4 F Pulse Rate [Pulse Oximeter] 84 94 94 Respiratory Rate 16 16 16 Blood Pressure [Ri ght Arm] 135/76 146/86 H Pulse Oximetry 98 98 Oxygen Delivery Me thod Room Air Room Air 07/14/24 02:30 07/14/24 07:00 07/14/24 07:00 Temperature 98.9 F 98.6 F Pulse Rate [Pulse Oximeter] 95 79 79 Respiratory Rate 16 16 16 Blood Pressure [Ri ght Arm] 143/77 H 121/76 Pulse Oximetry 98 97 Oxygen Delivery Me thod Room Air Room Air 07/14/24 11:00 Temperature 98.5 F Pulse Rate [Pulse Oximeter] 91 Respiratory Rate 18 Blood Pressure [Ri ght Arm] 108/67 Pulse Oximetry 98 Oxygen Delivery Me thod Room Air Documenting provider has reviewed patient's vital signs: yes Labs Labs: Laboratory Results - last 24 hr 07/14/24 06:10 WBC 9.75 RBC 4.28 Hgb 12.2 Hct 38.1 MCV 89 MCH 29 MCHC 32 RDW Coeff of Jose R 14.7 Plt Count 314 Neut % (Auto) 79.2 H Lymph % (Auto) 14.9 L Wood % (Auto) 5.5 Eos % (Auto) 0.1 Baso % (Auto) 0.2 Neut # (Auto) 7.70 H Lymph # (Auto) 1.50 Wood # (Auto) 0.50 Eos # (Auto) 0.01 Baso # (Auto) 0.02 Abs Immat Gran (auto) 0.01 Imm/Tot Granulo (auto) 0.1 Sodium 138 Potassium 4.2 Chloride 106 Carbon Dioxide 29 Anion Gap 3 L BUN 14 Creatinine 0.9 Estimated Creat Clear 44.02 Estimated GFR 72 Glucose 110 Lactate 0.6 Calcium 8.9
[2024-07-14 19:00] VITALS: BP 130/79; PULSE 79; RESP 16; TEMP 36.9; O2SAT 100
--- NOTE | 2024-07-14 19:31 | PC.NURSE ---
End of shift-- Pleasant and cooperative, alert and oriented patient. VSS and pt is afebrile. SPO2 maintained >90% on RA. She denied any pain or nausea today and stated that she is now passing flatus. BS+ x4. She ambulated the hallway independently several times today and appears to be tolerating clear liquids well this afternoon and evening with no difficulties. Report to [facility].
[2024-07-14] MEDS: SODIUM CHLORIDE 0.9 % (FLUSH) 10 ML SYRINGE 5 ML IVF (22:02)
[2024-07-14 23:00] VITALS: BP 133/74; PULSE 64; RESP 16; TEMP 36.4; O2SAT 100
[2024-07-15 03:00] VITALS: BP 128/72; PULSE 76; RESP 16; TEMP 37; O2SAT 98
--- NOTE | 2024-07-15 05:58 | PC.NURSE ---
Pt pleasant, alert, oriented and vitally stable. IV removed, (Brain) OKed. Pt stated pain with flush, skin irritation and anxiety about the possibility of infection. Staff reassured pt, cleansed the site thoroughly with alcohol pad and covered site. Pt aware of possibly needed new IV if situation arises. Pt on clears tolerating well. Passing flatus. States no current pain. Up independently. Pt in bed, appears to be resting call light within reach.?
[2024-07-15 06:29] LABS: Lactate* 0.5 mmol/L (0.5-1.9)
[2024-07-15 06:45] LABS: Basophils Absolute Auto 0.04 K/uL (0.00-0.30); Basophils Percent Auto 0.7 % (0.0-3.0); Eosinophils Absolute Auto 0.11 K/uL (0.00-0.50); Eosinophils Percent Auto 1.8 % (0.0-7.0); Hemoglobin* 12.2 gm/dL (12.0-16.0); Immature Granulocytes Abs Auto 0.01 K/uL (0.00-0.30); Immature Granulocytes Pct Auto 0.2 %; Lymphocytes Absolute Auto 2.21 K/uL (0.90-2.90); Lymphocytes Percent Auto 36.7 % (20-44); Mean Corpuscular HGB Conc 32 gm/dL (32-36); Mean Corpuscular Hemoglobin 29 pg (26-34); Mean Corpuscular Volume 90 fL (80-100); Monocytes Percent Auto 6.6 % (0.0-11.0); Neutrophils Absolute Auto 3.25 K/uL (1.7-7.0); Platelet Count* 288 K/uL (140-440); RDW Coefficient of Variation % 14.3 % (11.5-15.5); Red Blood Count 4.22 m/uL (4.00-5.20); White Blood Count* 6.02 K/uL (4.50-11.00)
[2024-07-15 06:48] LABS: Chloride* 103 mmol/L (96-114); Potassium* 4.3 mmol/L (3.6-5.1); Sodium* 136 mmol/L (135-149)
[2024-07-15 06:50] LABS: Blood Urea Nitrogen* 14 mg/dL (7-30); Creatinine* 0.9 mg/dL (0.5-1.5); Est. Creatinine Clearance* 44.02; Estimated Glomerular Filt Rate 72 ml/min
[2024-07-15 06:51] LABS: Anion Gap 3 mEq/L (7-15); Calcium* 9.1 mg/dL (8.4-10.6); Carbon Dioxide* 30 mmol/L (20-32); Glucose* 80 mg/dL (60-115)
[2024-07-15 06:58] LABS: Slide Review Reflex No
[2024-07-15 08:42] VITALS: BP 112/65; PULSE 74; RESP 16; TEMP 37.4; O2SAT 98
[2024-07-15 11:00] VITALS: BP 128/71; PULSE 73; RESP 16; TEMP 37.1; O2SAT 98
--- NOTE | 2024-07-15 11:45 | PM.GSPN ---
Subjective Subjective Date Seen: 07/15/24 Interval history: Patient continues to pass gas. She does report some mild achiness in her abdomen, but overall no pain. She feels much better than when she initially came. No bowel movement but she reports ?I want have a bowel movement for about a week. She does use laxatives chronically. I offered her some oral laxatives today, which she declined. She has been tolerating clear liquids and some ice cream. She was told that she can have a regular diet, which I agree with, but the patient insists on just clear liquids. She does like to have control of her hospital course. She has been walking and jumping around her room to ambulate Exam Narrative: Exam Narrative: General: Alert and oriented, no acute distress Abdomen: Mild distention, soft, nontender to palpation. Positive bowel sounds. Const: Vital Signs, click to edit/add: Vital Signs - 24 hr 07/14/24 15:00 07/14/24 15:00 07/14/24 19:00 Temperature 98.5 F Pulse Rate [Pulse Oximeter] 79 79 79 Respiratory Rate 16 16 16 Blood Pressure [Ri ght Arm] 131/81 130/79 Pulse Oximetry 98 100 Oxygen Delivery Me thod Room Air Room Air 07/14/24 23:00 07/14/24 23:00 07/15/24 03:00 Temperature 97.6 F 98.6 F Pulse Rate [Pulse Oximeter] 64 64 76 Respiratory Rate 16 16 16 Blood Pressure [Ri ght Arm] 133/74 128/72 Pulse Oximetry 100 98 Oxygen Delivery Me thod Room Air 07/15/24 08:42 Temperature 99.4 F Pulse Rate [Pulse Oximeter] 74 Respiratory Rate 16 Blood Pressure [Ri ght Arm] 112/65 Pulse Oximetry 98 Oxygen Delivery Me thod Room Air Labs/Imaging Labs Labs: CBC and BMP reviewed, within normal limits. Imaging Imaging: No new imaging. Progress Note:A&P Assessment and plan (1) Small bowel obstruction: Status: Acute Assessment and Plan: Patient is a 64 yo female with a resolving small-bowel obstruction. She continues to pass gas, no bowel movement. Has been tolerating some full liquids, but resistant to advance to regular diet. This is per the patient preference. Benign exam, no acute concerns from a surgical standpoint. -okay to advance diet to regular -encouraged patient to start oral senna/Colace, which she uses chronically at home. Declining at this time. -encourage ambulation -SCDs for DVT prophylaxis
--- NOTE | 2024-07-15 15:41 | PM.DS1 ---
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 So far doing well with conservative management. She is passing gas indicating likely that things are opening up. Tolerating clear liquid diet. She is hesitant to proceed with advancing diet. Wants to go home. DS: Summary Hospital Course Hospital Course: 64-year-old female with recurrent small-bowel obstruction. Transition point in the right lower quadrant. Patient is had couple recurrences since she had a hysterectomy several years ago. This is thought to be the cause for her he adhesions and recurrent obstructions. She was managed conservatively with IV fluids. As she began to pass gas clear liquids were introduced and she tolerated this well. She is anxious to go home. Status at Discharge Functional status at discharge: independent ambulation Overall status at discharge: patient is back to baseline Time Spent with Patient Time attestation: Total time spent providing and/or coordinating discharge services: 35 minutes Exam Narrative: Exam Narrative: She is alert and in no distress. Mood and affect are bright. Abdomen with active bowel sounds. Abdomen is soft without tenderness or mass. Const: Vital Signs, click to edit/add: Vital Signs - 24 hr 07/14/24 19:00 07/14/24 23:00 07/14/24 23:00 Temperature 98.5 F 97.6 F Pulse Rate [Pulse Oximeter] 79 64 64 Respiratory Rate 16 16 16 Blood Pressure [Ri ght Arm] 130/79 133/74 Pulse Oximetry 100 100 Oxygen Delivery Me thod Room Air 07/15/24 03:00 07/15/24 08:42 07/15/24 11:00 Temperature 98.6 F 99.4 F 98.7 F Pulse Rate [Pulse Oximeter] 76 74 73 Respiratory Rate 16 16 16 Blood Pressure [Ri ght Arm] 128/72 112/65 128/71 Pulse Oximetry 98 98 98 Oxygen Delivery Me thod Room Air Room Air Room Air Documenting provider has reviewed patient's vital signs: yes DS: Data Data Completed and Pending Labs on day of discharge: Labs from last 24 hours 07/15/24 05:58 WBC 6.02 RBC 4.22 Hgb 12.2 Hct 38.0 MCV 90 MCH 29 MCHC 32 RDW Coeff of Jose R 14.3 Plt Count 288 Neut % (Auto) 54.0 Lymph % (Auto) 36.7 [place] % (Auto) 6.6 Eos % (Auto) 1.8 Baso % (Auto) 0.7 Neut # (Auto) 3.25 Lymph # (Auto) 2.21 [place] # (Auto) 0.40 Eos # (Auto) 0.11 Baso # (Auto) 0.04 Abs Immat Gran (auto) 0.01 Imm/Tot Granulo (auto) 0.2 Sodium 136 Potassium 4.3 Chloride 103 Carbon Dioxide 30 Anion Gap 3 L BUN 14 Creatinine 0.9 Estimated Creat Clear 44.02 Estimated GFR 72 Glucose 80 Lactate 0.[address] scan - abdomen: Radiologist's impression: INDICATION: History of small-bowel obstruction, epigastric pain. COMPARISON: 10/24/2019, 03/26/2015 TECHNIQUE: CT of the abdomen and pelvis with intravenous contrast. Multiplanar axial, coronal, and sagittal reformats were reconstructed. Contrast: 75 mL Isovue 370. FINDINGS: Lung bases: Normal. Liver: Normal. No mass. Gallbladder and bile ducts: Normal gallbladder. No bile duct dilation. Pancreas: Normal. Spleen: Normal. Adrenal glands: Normal. Kidneys: Normal parenchyma. No cyst or solid mass. No calculi. No urinary tract dilation. Urinary bladder: Normal. Pelvis: No cyst or mass. Vessels: Few atherosclerotic vascular calcifications. Widely patent mesenteric vessels. Bowel: The stomach is decompressed. The proximal small bowel is decompressed. There is relatively abrupt transition to dilated small bowel at the level of the proximal ileum. There is some fecalization of the contents just proximal to the 1st obstruction point. The transition point is seen on series 2, image 90 [id number]. The proximal and distal transition points are immediately adjacent to one another in the right lower quadrant. The interval small bowel is dilated and measures up to 3 centimeters in diameter. There are air-fluid levels. The wall is normal thickness and slightly hyperenhancing. There is a small amount of mesenteric edema but no interloop ascites. No abscess or phlegmon. Transition point is at the distal ileum. The terminal ileum is decompressed. Normal CT appearance of the colon. Probable appendectomy with a surgical clip at the cecal tip. Mild stool burden. Lymph nodes: No adenopathy. Peritoneum: Small ascites. No free air. Abdominal wall: No hernia. Bones: No fractures. No focal worrisome bone lesions. IMPRESSION: 1. Small-bowel obstruction with a single transition point in the right lower quadrant. No ischemia or perforation. 2. Minimal abdominal ascites. No abscess. No free air. Discharge Plan Discharge Disposition: Home, Self-Care Date of Admission: 07/14/24 08:00 Attending Provider on Discharge: Yao Larkin Primary Care Provider: Suzanna Henderson Condition: Stable Anticipated Discharge Date/Time: 07/15/24 13:00 Discharge Medications: Continued sumatriptan succinate 100 mg tablet 100 mg PO DIRECTED aspirin 325 mg capsule 325 mg PO Q4-6H PRN Discharge Orders: Discharge Order (Routine); Ordered 07/15/24 Ordered By: Yao Larkin Patient Education: Bowel Obstruction (DC) Activity Level: Activity as Tolerated and Other Discharge Diet: Regular and Other Follow Up Appointments: Suzanna Henderson MD [Primary Care Provider] - (Follow-up as needed) Forms: [facility] Info Instructions
== END 2024-07-15 13:54 | disposition home or self-care (01) | DRG 247 ==
LOC: ED 08:46 → MEDSURG 09:12
PROVIDERS: Admitting Provider Family Medicine; Emergency Provider Family Medicine; PCP Family Medicine; Visit Provider Family Medicine
DX: K56.50 Intestinal adhesions [bands], unspecified as to partial versus complete obstruction (principal); K58.1 Irritable bowel syndrome with constipation; N18.2 Chronic kidney disease, stage 2 (mild); E78.5 Hyperlipidemia, unspecified; K21.9 Gastro-esophageal reflux disease without esophagitis
CPT/HCPCS: 36415; 74177; 80048; 80053; 82565; 83605; 85025; 86140; 94761; 99283; 99285; A9270; G0378; J2060; J2405; J7030; J7120; Q9967

== ENCOUNTER 2024-11-14 13:30 | Outpatient (RCR) | payer BC, SELFPAY | END 2025-03-14 23:59 | disposition home or self-care (01) | PROVIDERS: PCP Family Medicine; Visit Provider Orthopaedic Surgery | DX: M65.322 Trigger finger, left index finger (principal); M79.642 Pain in left hand; Z51.89 Encounter for other specified aftercare | CPT/HCPCS: 97035; 97110; 97140; 97165; X5282 ==